=== PATIENT | male | born 1950 | race Caucasian/White ===

== ENCOUNTER 2021-01-27 10:04 | Inpatient (IN) | payer OTHER ==
[~2021-01-27] VITALS: Ht 182.9 cm; Wt 85.3 kg
--- NOTE | ~2021-01-27 | O ---
[facility] [place] [address] OPERATIVE REPORT Name: ROQUE CANALES Room #: 442-P ADM IN M.R.#: [id number] Admission: 01/27/21 Attend Phys: Smith Almonte Discharge: Date of : 46 Report #: [id number] THIS REPORT FOR: cc: Jay Obrien MD, Christopher B. MD Haggard, Kent L MD ~ DATE OF SERVICE: 01/29/2021 PREOPERATIVE DIAGNOSIS: A 2 cm x 12 mm right renal stone. POSTOPERATIVE DIAGNOSIS: A 2 cm x 12 mm right renal stone. PROCEDURES: Cystoscopy, right retrograde pyelogram, right ureteroscopy with a right ureteral stent placement under fluoroscopic guidance. STAFF SURGEON: Jaleel Vivar MD SELF CONTAINED BEHAVIOR UNIT TEACHER: None. ANESTHESIA: General. ESTIMATED BLOOD LOSS: None. COMPLICATIONS: None. SPECIMEN: None. DRAIN: A 26 cm x 6-Bangladeshi right ureteral stent. INDICATIONS: The patient is a 70-year-old white male, who presented with right flank pain. CT scan at [facility] documented at 2 cm x 1.2 cm right renal pelvic stone. He has some perinephric stranding. Creatinine was 1.2. Admitted for possible pyelonephritis. He has been given antibiotics and pain was resolved. He had history of kidney stone 10 years ago. His pain has resolved. He still has a large stone within his right kidney. He was counseled regarding treatment options and elected for definitive cystoscopy, right retrograde pyelogram and right ureteral stent placement. After the risks and benefits of the procedure explained, informed consent was obtained. DESCRIPTION OF PROCEDURE: The patient was taken to the operating room, comfortably placed in the dorsal lithotomy position under adequate general anesthesia. The patient was sterilely prepped and draped in standard fashion, exposing only the genitalia. He is up-to-date on his antibiotic therapy as prescribed. An appropriate time-out was carried out and all were in agreement. A 22-Bangladeshi cystoscope with 30-degree angle was placed into the urethra. [address] [address] OPERATIVE REPORT Name: PARKER,ROQUE JOSE Room #: 442-P [facility] IN M.R.#: [id number] Admission: 01/27/21 Attend Phys: Smith Almonte Discharge: Date of : 46 Report #: [id number] Anterior urethra normal. Sphincter intact. Prostate showed some minimal hyperplasia. Bladder was systematically viewed. Both ureteral orifices were identified and normal. No bladder calculi seen or foreign body observed. Mucosa was smooth without any irregularity. 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 No specific hydronephrosis identified. A 0.035 Glidewire advanced up the right ureter, which was treated in the upper pole moiety. I advanced a comfort catheter up the right ureter and was able to angle the catheter into the lower pole followed by the guidewire and coiled it in the lower pole moiety around the stone. Comfort catheter was removed and a 26 cm x 6-Bangladeshi ureteral stent was put in place and positioned with good coil in the lower pole moiety and a good coil within the bladder. The bladder was drained, cystoscope was removed. He tolerated this extremely well. He was extubated in the operating room, transferred [facility] with assistance and went to recovery in good condition. Stone was easily seen under fluoroscopy and is a good candidate for ESWL and was planned for ESWL next week. By: [id number] Jaleel Vivar MD /nt
[2021-01-27 10:09] VITALS: BP 139/68
[2021-01-27] MEDS ORDERED: METHOTREXATE 22.5 M1 PO (10:31)
[2021-01-27 10:41] LABS: BASOPHILS 0.2 % (0.0-2.0); EOSINOPHILS 1.1 % (0.0-3.0); HEMATOCRIT 48.8 % (42.0-52.0); HEMOGLOBIN 16.6 gm/dL (14.0-18.0); LYMPHOCYTES 18.6 % (24.0-44.0); MCH 33.5 pg (26.0-34.0); MCHC 34.1 g/dL (28.0-37.0); MCV 98.2 fL (80.0-100.0); MONOCYTES 8.6 % (1.0-8.0); PLATELET COUNT 260 thou/uL (150-400); POLYS 71.5 % (36.0-66.0); RBC 4.97 mil/uL (4.50-6.00); RDW 13.7 % (10.5-14.5); WBC 5.6 thou/uL (4.0-11.0)
[2021-01-27 10:50] LABS: CREATININE 1.3 mg/dL (0.7-1.3); POTASSIUM 4.6 mmol/L (3.5-5.1)
[2021-01-27 10:57] LABS: ALBUMIN 4.1 g/dL (3.4-5.0); TOTAL BILIRUBIN 0.4 mg/dL (0.2-1.0); TOTAL PROTEIN 8.1 g/dL (6.4-8.2)
[2021-01-27 11:55] LABS: URINE BILIRUBIN NEGATIVE (Negative); URINE BLOOD 2+ (Negative); URINE CLARITY CLEAR; URINE COLOR YELLOW; URINE GLUCOSE-RANDOM* NEGATIVE (Negative); URINE KETONES NEGATIVE (Negative); URINE NITRITE-REFLEX NEGATIVE (Negative); URINE PROTEIN (DIPSTICK) 1+ (Negative); URINE UROBILINOGEN 0.2 E.U./dl (0.2-1.0)
[2021-01-27 12:02] LABS: URINE LEUKOCYTES-REFLEX 1+ (Negative)
[2021-01-27 12:12] LABS: MUCUS 4-6 Moderate strn/LPF (None Seen)
[2021-01-27 12:13] LABS: SQUAMOUS 0-3 Few /LPF (0-3); URINE WBC-REFLEX >25 Many /HPF (0-5)
[2021-01-27 12:14] LABS: CASTS None Seen /LPF (None Seen); CRYSTALS None Seen /LPF (None Seen); URINE RBC 3-10 Few /HPF (0-2)
[2021-01-27 17:25] VITALS: BP 115/62
[2021-01-27 17:57] VITALS: BP 115/62
--- NOTE | 2021-01-27 18:31 | NUR ---
ASSUMED PT CARE UPON TRANSFER TO UNIT AT 181. PT RESTING IN BED, INSTRUCTED ON HOW TO USE CALL LIGHT. VITAL SIGNS TAKEN.
[2021-01-27 18:37] VITALS: BP 114/63
--- NOTE | 2021-01-27 21:52 | NUR ---
ASSESSED AT START OF SHIFT. PT A&OX4. ADMISSION DONE AND PT ORIENTED TO THE UNIT. IV INTACT WITH FLUIDS INFUSING. NIGHT MEDS GIVEN AND PT JASON IT WELL. CALL LIGHT AT REACH. PT UP TO THE BATHROOM. FALL EDUCATION PROVIDED. WILL CONT WITH POC TILL EOS.
[2021-01-28 00:06] VITALS: BP 103/57
[2021-01-28 04:00] VITALS: BP 103/54
[2021-01-28 05:37] LABS: ALBUMIN 2.8 g/dL (3.4-5.0); CALCIUM 7.9 mg/dL (8.5-10.1); CREATININE 1.3 mg/dL (0.7-1.3); PHOSPHORUS 3.8 mg/dL (2.5-4.9); POTASSIUM 4.1 mmol/L (3.5-5.1)
[2021-01-28 07:30] VITALS: BP 102/62
--- NOTE | 2021-01-28 09:56 | NUR ---
ASSESSMENT: CM REVIEWED CHART AND SPOKE WITH PATIENT. PT IS ALERT AND ORIENTED X4. PT WAS ADMITTED WITH PYLEONEPHRITIS. UROLOGY HAS BEEN CONSULTED AND PLANS FOR POSSIBLE STENT PLACEMENT TOMORROW. PT REPORTS THAT HE LIVES IN A RANCH STYLE HOME WITH HIS . PT HAS A RAMP TO ENTER THE HOME AND NO STEPS HE HAS TO USE. PT STATES HE HAS A CANE TO USE FOR AMBULATION. PT REPORTS HAVING A WALKER BUT DOES NOT USE IT. PT STATES HE HAS NO PAST HX OF HH OR SNF. CM DISCUSSED ROLE. PT DOES NOT ANTICIPATE HAVING ANY NEEDS FROM CM. CM WILL CONTINUE TO FOLLOW TO ASSIST NEEDED.
--- NOTE | 2021-01-28 15:23 | NUR ---
PT ALERT AND ORIENTED TIMES FOUR. VSS. IVF INFUSING PER ORDER. PT DENIES PAIN/SOA. PT TOLERATES MEDS AND MEALS. PT UP AB DARWIN WITH STEADY GAIT. PT WILL BE NPO AFTER MIDNIGHT FOR SURGERY IN THE MORNING. WILL CONTINUE TO MONITOR.
[2021-01-28 16:40] VITALS: BP 106/54
[2021-01-28 18:51] VITALS: BP 98/55
[2021-01-29 04:21] VITALS: BP 118/68
--- NOTE | 2021-01-29 04:39 | NUR ---
Pt. denies any pain . No nausea or vomiting. Kept NPO since MN for stent placement today. Pt. encouraged to call for assistance. He uses cane for ambulation. Provided yellow socks ,yellow arm band and bed alarm on. SCD's applied. Provided urinal. He slept fair during the night.
[2021-01-29 07:21] VITALS: BP 124/64
[2021-01-29] MEDS ORDERED: FLOMAX0.4 MG PO (09:17)
--- NOTE | 2021-01-29 10:32 | NUR ---
ASSUMED PT CARE THIS AM. PT VSS, A&OX4. PT REPORTING NO PAIN WITH URINATION OR ELSEWERE. PT PLEASANT, MAKES NEEDS KNOWN. FALL PRECAUTIONS IN PLACE. AMBULATORY TO BATHROOM AND AROUND UNIT. IV PATENT, MEDS INFUSING WELL.
--- NOTE | 2021-01-29 16:10 | NUR ---
on-going assessment: PT HAD CYSTOCOPY AND RIGHT URETERAL STENT PLACED. PT SHOULD HAVE NO NEEDS FROM CM AT DISCHARGE.
[2021-01-29 16:33] VITALS: BP 139/72
[2021-01-29 17:07] VITALS: BP 139/72
[2021-01-29 17:10] VITALS: BP 134/63
== END 2021-01-29 17:30 | disposition home or self-care (01) | DRG 661 ==
LOC: ER 10:04 → EROBS 12:45 → 4S 12:45
PROVIDERS: Emergency Medicine; ADMIT Hospitalist; ATTEND Hospitalist
PROC: BT1D1ZZ Fluoroscopy of Right Kidney, Ureter and Bladder using Low Osmolar Contrast (ICD-10-PCS; principal; 2021-01-29)
PROC: 0T768DZ Dilation of Right Ureter with Intraluminal Device, Via Natural or Artificial Opening Endoscopic (ICD-10-PCS; principal; 2021-01-29)
DX: N10 Acute pyelonephritis (principal); N17.9 Acute kidney failure, unspecified; Z20.822 Contact with and (suspected) exposure to COVID-19; M06.9 Rheumatoid arthritis, unspecified; F17.210 Nicotine dependence, cigarettes, uncomplicated; R53.81 Other malaise; N20.0 Calculus of kidney; Z79.899 Other long term (current) drug therapy; Z88.8 Allergy status to other drugs, medicaments and biological substances
CPT/HCPCS: 10195; 50010; 50101; 51620; 51767; 56674; 57160; 62110; 62900; 70005